=== PATIENT | female | born 1930 | race Caucasian/White ===

== ENCOUNTER 2018-03-23 12:24 | Emergency (ER) | payer MEDICARE, OTHER ==
[2018-03-23] MEDS ORDERED: Acetaminophen 500 MG TAB ONE (14:27)
--- NOTE | 2018-03-23 14:44 | RAD ---
FOUR VIEWS RIGHT KNEE: Date: 03-23-18 History: Right knee pain that started on Friday. Bruising. FINDINGS: There is tricompartment osteophytosis. There is narrowing of the patellofemoral joint present. Calcif ications overlie the medial and lateral joint compartments suggesting chondrocalcinosis. No acute fra cture or dislocation is seen. There is an irregular calcification seen overlying the suprapatellar bu rsa of uncertain etiology. Vascular calcifications are seen posterior to the knee. IMPRESSION: Irregular calcification seen overlying the suprapatellar location. Nonemergent MRI right knee is sugg ested for further evaluation. 2. Osteoarthritis and chondrocalcinosis. 3. No acute fracture or dislocation involving the right knee. 4. Subcutaneous soft tissue swelling with some tubular structures involving the medial aspect of the inner lower thigh which may be related varicosities. This cannot be further evaluated on this exam. POS: JOY
--- NOTE | 2018-03-23 15:18 | ULT ---
RIGHT LOWER EXTREMITY VENOUS DOPPLER WITH SPECTRAL ANALYSIS AND COLOR FLOW EVALUATION: DATE: 03/23/2018. HISTORY: Atraumatic right knee pain and right knee swelling. FINDINGS: Manrique scale, color flow, Doppler evaluation, and spectral analysis of the right lower extremity venous structures is performed with 2D imaging. The right lower extremity, femoral, superficial femoral, p opliteal, posterior tibial, most proximal greater saphenous, and profunda femoral veins are imaged. The distal right superficial femoral vein is not well seen and manrique scale imaging limited evaluation for lumen compressibility and for evaluation of nonocclusive DVT. However, there is normal flow seen within this vein. There is otherwise normal lumen compression, flow, and augmentation of the visual ized deep venous structures of the right lower extremity. IMPRESSION: No evidence of deep vein thrombosis involving the visualized deep venous structures of the right lowe r extremity. However, the distal right lower extremity superficial femoral vein is not well visualiz ed on provided image, and a nonocclusive deep vein thrombosis at this level could not be entirely exc luded. POS: JOY
== END 2018-03-23 14:30 | disposition home or self-care (01) ==
LOC: SCSER 12:24
DX: M25.561 Pain in right knee (principal); I48.91 Unspecified atrial fibrillation; I49.9 Cardiac arrhythmia, unspecified; E03.9 Hypothyroidism, unspecified; E78.2 Mixed hyperlipidemia; Z79.899 Other long term (current) drug therapy; Z79.82 Long term (current) use of aspirin